=== PATIENT | male | born 1945 | race Caucasian/White ===

== ENCOUNTER 2017-12-19 16:07 | Emergency (ER) | payer MEDICARE, BC ==
--- NOTE | 2017-12-19 17:24 | XRAY Report ---
Reason: pain and swelling Procedure Date: 12/19/2017 Accession Number: [id number] / [id number] Procedure: XR - Knee 4 View LT CPT Code: FULL RESULT: EXAM: LEFT KNEE RADIOGRAPHY EXAM DATE: 12/19/2017 05:05 PM. CLINICAL HISTORY: Left knee pain. COMPARISON: None. TECHNIQUE: 4 views. FINDINGS: Bones: Normal. No fractures or bone lesions. Joints: Normal. No effusion. No subluxations. Soft Tissues: Normal. No soft tissue swelling. IMPRESSION: Normal knee radiography. [facility]
--- NOTE | 2017-12-19 17:40 | ED Physician Documentation ---
PD HPI ANIMAL BITE - Stated complaint Stated Complaint: LT LEG VS DOG - Chief complaint Chief Complaint: Ext Problem - History obtained from History obtained from: Patient - History of Present Illness Location of injury(ies): LLE (anterolateral knee) Details of the event: Dog, Well appearing (his dog was running fast toward him at dog park and the dog ran into his knee. No bite nor scratch. Pain at anterolateral knee. Patient concerned about ligament injury.) Timing - onset: Today Timing - details: Abrupt onset Improved by: Rest Worsened by: Moving (extension at the knee), Palpating Associated symptoms: Other (denies locking nor giving out since injury.). No: Weakness, Numbness Similar symptoms before: Has not had sx before Recently seen: Not recently seen Review of Systems Skin: denies: Abrasion (s), Laceration (s) Musculoskeletal: reports: Joint pain (left anterolateral knee) Neurologic: denies: Focal weakness, Numbness PD PAST MEDICAL HISTORY - Past Medical History Cardiovascular: Hypertension Musculoskeletal: None, Osteoarthritis - Past Surgical History Past Surgical History: Yes Ortho: Arthroscopic surgery - Present Medications Home Medications: Ambulatory Orders Medication Instructions Recorded Confirmed Azithromycin 250 mg PO DAILY #4 tablet 01/24/14 Benzonatate [Tessalon] 100 mg PO Q8H PRN #20 capsule 01/24/14 L. Rhamnosus GG/Inulin [Culturelle 1 each PO DAILY #14 cap.sprink 01/24/14 Capsule] Lisinopril [Zestril] 15 mg DAILY 01/24/14 01/24/14 Vitamins And Supplement 01/24/14 01/24/14 - Allergies Allergies/Adverse Reactions: Allergies Allergy/AdvReac Type Severity Reaction Status Date / Time No Known Drug Allergies Allergy Verified 12/19/17 16:38 - Social History Does the pt smoke?: No Smoking Status: Never smoker Does the pt drink ETOH?: Yes Does the pt have substance abuse?: No PD ED PE NORMAL - Vitals Vital signs reviewed: Yes - General General: Alert and oriented X 3, No acute distress, Well developed/nourished - Derm Derm: Normal color, Warm and dry - Extremities Extremities: Other (left anterolateral knee with local tenderness in muscle. No effusion. Ligament testing of knee is without pain nor laxity. passive ROM without clicking nor popping. ) - Neuro Neuro: No motor deficit, No sensory deficit Results - Vitals Vitals: Vital Signs - 24 hr 12/19/17 16:36 Temperature 36.6 C Heart Rate 53 L Respiratory 15 Rate Blood Pressure 148/80 H O2 Saturation 98 Oxygen O2 Source Room air - Rads (name of study) left knee Radiology: Prelim report reviewed, EMP read contemporaneously (no fractures) PD MEDICAL DECISION MAKING - ED course Complexity details: reviewed results, considered differential (seems like local contusion, without clinical ligamentous injury of the knee. ), d/w patient Departure - Departure Disposition: 01 Home, Self Care Clinical Impression: Contusion, knee Qualifiers: Encounter type: initial encounter Laterality: left Qualified Code(s): S80.02XA - Contusion of left knee, initial encounter Condition: Stable Record reviewed to determine appropriate education?: Yes Instructions: ED Sprain Knee Follow-Up: Chris Merrill [Primary Care Provider] - Comments: Ice and rest your knee often tonight. You can use her knee brace that you have. Tylenol or ibuprofen or naproxen as needed for pains. Your x-ray is normal without any fractures. On exam I do not feel there are any major ligament injuries of the knee. Will be sore for several days to week and he can progress activity as you feel tolerable. Discharge Date/Time: 12/19/17 18:05
[2017-12-19 18:06] VITALS: BP 138/80
== END 2017-12-19 18:05 | disposition home or self-care (01) ==
LOC: ED 16:07
DX: S80.02XA Contusion of left knee, initial encounter (principal); I10 Essential (primary) hypertension; W54.1XXA Struck by dog, initial encounter; Y92.830 Public park as the place of occurrence of the external cause
CPT/HCPCS: 99283

== ENCOUNTER 2018-03-15 05:48 | Emergency (ER) | payer MEDICARE, BC ==
--- NOTE | 2018-03-15 06:13 | ED Physician Documentation ---
PD HPI FOCAL NEURO - Stated complaint Stated Complaint: LT ARM NUMBNESS - Chief complaint Chief Complaint: Neuro - History obtained from History obtained from: Patient, Family - History of Present Illness Timing - onset: Today Timing - duration: Minutes Timing - details: Abrupt onset, Still present Time of symptom onset unknown: Time of onset unknown Severity of deficit: Moderate Weakness: No: Face, Arm, Hand, Leg, Foot, Right, Left Numbness: Arm, Left Associated symptoms: No: Headache, Nausea / vomiting, Seizure, Syncope, Fall, Head injury, Chest pain, Neck pain, Back pain, Fever Contributing factors: negative: Anticoagulated, Atrial fibrillation Baseline status: positive: A&OX3, ambulatory, indep Similar symptoms before: Diagnosis (TIA in 2006 nerve compression) Recently seen: Not recently seen - Additional information Additional information: 72-year-old previously well male has developed numbness in the left arm from the axilla to the wrist on the volar surface. He has had these symptoms previously and is able to shake it off very easily and this morning he is not been able to shake this off. He reports that he usually sleeps with a pillow underneath his left arm. He also reports that in 2006 he was evaluated for a TIA related to numbness in the left arm. He has no motor weakness and he has no family history of heart disease. He does relate that he is a runner and that recently he was not told by his dog and sprained his knee and was out of training for about 2 months. He is come back to training and despite this within the month he is still not up to where he was previously. He was not expecting this level of deconditioning. Usually ran about 4 miles he is only up to a little more than 2. Review of Systems Constitutional: denies: Fever, Chills, Myalgias, Fatigue, Weight Loss, Sweats Eyes: denies: Decreased vision Ears: denies: Ear pain Nose: denies: Rhinorrhea / runny nose, Congestion Throat: denies: Dental pain / toothache Cardiac: denies: Chest pain / pressure, Palpitations, Calf pain Respiratory: denies: Dyspnea, Cough GI: denies: Abdominal Pain, Nausea, Vomiting, Constipation, Diarrhea : denies: Dysuria, Frequency Skin: denies: Rash Musculoskeletal: denies: Neck pain, Back pain, Extremity pain Neurologic: reports: Numbness. denies: Generalized weakness, Focal weakness PD PAST MEDICAL HISTORY - Past Medical History Cardiovascular: Hypertension Musculoskeletal: None, Osteoarthritis - Past Surgical History Past Surgical History: Yes Ortho: Arthroscopic surgery - Present Medications Home Medications: Ambulatory Orders Medication Instructions Recorded Confirmed Azithromycin 250 mg PO DAILY #4 tablet 01/24/14 Benzonatate [Tessalon] 100 mg PO Q8H PRN #20 capsule 01/24/14 L. Rhamnosus GG/Inulin [Culturelle 1 each PO DAILY #14 cap.sprink 01/24/14 Capsule] Lisinopril [Zestril] 15 mg DAILY 01/24/14 01/24/14 Vitamins And Supplement 01/24/14 01/24/14 - Allergies Allergies/Adverse Reactions: Allergies Allergy/AdvReac Type Severity Reaction Status Date / Time No Known Drug Allergies Allergy Verified 12/19/17 16:38 - Social History Does the pt smoke?: No Smoking Status: Never smoker Does the pt drink ETOH?: Yes Does the pt have substance abuse?: No PD ED PE NORMAL - Vitals Vital signs reviewed: Yes (hypertensive ) - General General: Alert and oriented X 3, No acute distress, Well developed/nourished - HEENT HEENT: Atraumatic, PERRL, EOMI, Ears normal - Neck Neck: Supple, no meningeal sign, No bony TTP - Cardiac Cardiac: RRR, No murmur - Respiratory Respiratory: No respiratory distress, Clear bilaterally - Abdomen Abdomen: Soft, Non tender - Back Back: No CVA TTP - Derm Derm: Normal color, Warm and dry, No rash - Extremities Extremities: No deformity, No tenderness to palpate, Normal ROM s pain, No edema, No calf tenderness / cord - Neuro Neuro: Alert and oriented X 3, informatics application analyst 2-12 intact, No motor deficit, Normal speech, Other (subjective numbness to the volar surface of the left arm from the axilla to the hand. ) Eye Opening: Spontaneous Motor: Obeys Commands Verbal: Oriented GCS Score: 15 - Psych Psych: Normal mood, Normal affect NIHSS - Time Time: 06:00 - Level of Consciousness Level of consciousness: (0) Alert, Keenly responsive LOC Questions: (0) Answers both Q's correct LOC Commands: (0) Performs both correctly - Gaze Best Gaze: (0) Normal - Visual Visual: (0) No loss - Facial Palsy Facial Palsy: (0) Normal, symmetrical movement - Motor Arms (both separate) Motor Arm (right): (0) No drift Motor Arm (left): (0) No drift - Motor Legs (both separate) Motor Leg (right): (0) No drift Motor Leg (left): (0) No drift - Limb Ataxia Limb Ataxia: (0) Absent - Sensory Sensory: (1) Xboe-yc-zimjqmic loss - Best Language Best Language: (0) No aphasia - Dysarthria Dysarthria: (0) Normal - Extinction and Inattention (formally neg Extinction and inattention: (0) No abnormality - Total Score/Results Total Score/Result: 1 Results - Vitals Vitals: Vital Signs - 24 hr 03/15/18 03/15/18 05:52 06:30 Temperature 36.8 C 36.5 C Heart Rate 49 L 46 L Respiratory 16 12 Rate Blood Pressure 185/90 H 154/84 H O2 Saturation 100 97 Oxygen O2 Source Room air - EKG (time done) 0558 Rate: Rate (enter#) (46) Rhythm: Sinus bradycardia QRS: LVH Ischemia: Non specific changes Compare to prior EKG: Old EKG unavailable Computer interpretation: Agree with computer - Labs Labs: Laboratory Tests 03/15/18 03/15/18 03/15/18 06:20 06:20 06:20 WBC 6.4 RBC 5.79 Hgb 16.7 Hct 48.7 MCV 84.1 MCH 28.9 MCHC 34.4 RDW 13.2 Plt Count 183 MPV 6.7 L Neut # (Auto) 3.1 Lymph # (Auto) 2.6 [place] # (Auto) 0.5 Eos # (Auto) 0.1 Baso # (Auto) 0.1 Absolute Nucleated RBC 0.03 Nucleated RBC % 0.5 Sodium 138 Potassium 3.8 Chloride 106 Carbon Dioxide 24 Anion Gap 8.0 BUN 22 H Creatinine 0.7 Estimated GFR (MDRD) 111 Glucose 98 Calcium 9.0 Total Bilirubin 1.5 H AST 23 ALT 17 Alkaline Phosphatase 65 Troponin I < 0.04 Total Protein 7.2 Albumin 4.1 Globulin 3.1 Albumin/Globulin Ratio 1.3 Lipase 32 - Rads (name of study) 2 view chest Radiology: Prelim report reviewed (Impression: Normal two-view chest radiography.), EMP read indepedently, See rad report PD MEDICAL DECISION MAKING - ED course Complexity details: reviewed old records, reviewed results, re-evaluated patient, considered differential, d/w patient, d/w family ED course: 72 y/o male with left arm numbness in the distribution of the medial cutaneous branch of the arm and forearm. He has some improvement in his symptoms while in the ED but not resolution. His condition does not correlate with CVA or TIA or LA. Departure - Departure Disposition: 01 Home, Self Care Clinical Impression: Paresthesia of arm Condition: Stable Instructions: ED Paraesthesias Follow-Up: Chris Merrill [Primary Care Provider] -
[2018-03-15 06:37] LABS: BASOPHILS # (AUTO) 0.1 10^3/uL (0.0-0.1); BASOPHILS % (AUTO) 0.8 %; EOSINOPHILS # (AUTO) 0.1 10^3/uL (0.0-0.7); EOSINOPHILS % (AUTO) 1.3 %; HGB - HEMOGLOBIN 16.7 g/dL (14.0-18.0); LYMPHOCYTES # (AUTO) 2.6 10^3/uL (1.5-3.5); LYMPHOCYTES % (AUTO) 40.8 %; MEAN CORPUSCULAR HEMOGLOBIN 28.9 pg (27.0-31.0); MEAN CORPUSCULAR HGB CONC 34.4 g/dL (32.0-36.0); MEAN CORPUSCULAR VOLUME 84.1 fL (80.0-94.0); MEAN PLATELET VOLUME 6.7 fL (7.4-11.4); MONOCYTES # (AUTO) 0.5 10^3/uL (0.0-1.0); MONOCYTES % (AUTO) 8.1 %; NEUTROPHILS # (AUTO) 3.1 10^3/uL (1.5-6.6); PLT - PLATELET COUNT 183 10^3/uL (130-450); RED BLOOD COUNT 5.79 10^6/uL (4.70-6.10); RED CELL DISTRIBUTION WIDTH 13.2 % (12.0-15.0); WHITE BLOOD COUNT 6.4 x10^3/uL (4.8-10.8)
--- NOTE | 2018-03-15 06:39 | XRAY Report ---
Reason: L arm numbness Procedure Date: 03/15/2018 Accession Number: [id number] / [id number] Procedure: XR - Chest 2 View X-Ray CPT Code: 54712 FULL RESULT: EXAM: CHEST RADIOGRAPHY EXAM DATE: 03/15/2018 06:33 AM. CLINICAL HISTORY: L arm numbness. COMPARISON: None. TECHNIQUE: 2 views. FINDINGS: Lungs/Pleura: No focal opacities evident. No pleural effusion. No pneumothorax. Normal volumes. Mediastinum: Heart and mediastinal contours are unremarkable. Other: None. IMPRESSION: Normal 2-view chest radiography. [facility]
[2018-03-15 06:43] LABS: ALBUMIN 4.1 g/dL (3.2-5.5); ALBUMIN/GLOBULIN RATIO 1.3 (1.0-2.2); BILIRUBIN,TOTAL 1.5 mg/dL (0.2-1.0); CREATININE 0.7 mg/dL (0.6-1.2); TOTAL PROTEIN 7.2 g/dL (6.7-8.2)
[2018-03-15 08:15] VITALS: BP 169/90
== END 2018-03-15 08:17 | disposition home or self-care (01) ==
LOC: ED 05:48
DX: R20.2 Paresthesia of skin (principal); I10 Essential (primary) hypertension
CPT/HCPCS: 36415; 71046; 80053; 83690; 84484; 85025; 93005; 99283; 99284

== ENCOUNTER 2018-04-06 10:56 | Emergency (ER) | payer MEDICARE, BC ==
[2018-04-06 11:32] VITALS: BP 136/86
--- NOTE | 2018-04-06 11:56 | ED Physician Documentation ---
PD HPI DYSPNEA - Stated complaint Stated Complaint: CHILLS/COUGH/WEAKNESS - Chief complaint Chief Complaint: Resp - History obtained from History obtained from: Patient - History of Present Illness Timing - onset: Other (This is an otherwise healthy 9-year-old gentleman with history of pneumonia x1 about 4 years ago who presents with an upper respiratory infection. It started with a sore throat that started about 5 days ago and defervesced but then he became chilled and developed an on and off productive cough with shortness of breath. There is no chest pain.) Review of Systems Constitutional: reports: Chills, Fatigue. denies: Fever Ears: denies: Ear pain Nose: reports: Rhinorrhea / runny nose Throat: denies: Sore throat Respiratory: reports: Dyspnea, Cough GI: denies: Abdominal Pain PD PAST MEDICAL HISTORY - Past Medical History Past Medical History: Yes Cardiovascular: Hypertension Neuro: TIA Musculoskeletal: None, Osteoarthritis - Past Surgical History Past Surgical History: Yes Ortho: Arthroscopic surgery - Present Medications Home Medications: Ambulatory Orders Medication Instructions Recorded Confirmed Azithromycin 250 mg PO DAILY #4 tablet 01/24/14 Benzonatate [Tessalon] 100 mg PO Q8H PRN #20 capsule 01/24/14 L. Rhamnosus GG/Inulin [Culturelle 1 each PO DAILY #14 cap.sprink 01/24/14 Capsule] Lisinopril [Zestril] 15 mg DAILY 01/24/14 01/24/14 Vitamins And Supplement 01/24/14 01/24/14 Albuterol Sulf [Ventolin Hfa 1 - 2 puffs INH Q4HR PRN #1 inhaler 04/06/18 Inhaler] guaiFENesin/CODEINE [Robitussin AC] 5 - 10 ml PO Q6H PRN #120 ml 04/06/18 - Allergies Allergies/Adverse Reactions: Allergies Allergy/AdvReac Type Severity Reaction Status Date / Time No Known Drug Allergies Allergy Verified 04/06/18 11:03 - Social History Does the pt smoke?: No Smoking Status: Never smoker Does the pt drink ETOH?: Yes Does the pt have substance abuse?: No - Immunizations Immunizations are current?: Yes PD ED PE NORMAL - Vitals Vital signs reviewed: Yes - General General: Alert and oriented X 3, No acute distress - HEENT HEENT: Pharynx benign - Cardiac Cardiac: RRR (With frequent extrasystoles, PACs on monitor), No murmur - Respiratory Respiratory: No respiratory distress, Other (Mild wheezes throughout without focal findings or respiratory distress.) - Abdomen Abdomen: Non tender - Extremities Extremities: No edema, No calf tenderness / cord - Neuro Neuro: Alert and oriented X 3, Normal speech - Psych Psych: Normal mood, Normal affect Results - Vitals Vitals: Vital Signs - 24 hr 04/06/18 04/06/18 11:00 11:28 Temperature 36.8 C Heart Rate 50 L 50 L Respiratory 16 16 Rate Blood Pressure 148/73 H 136/86 H O2 Saturation 99 97 Oxygen O2 Source Room air - Labs Labs: Laboratory Tests 04/06/18 11:04 Influenza A (Rapid) Negative Influenza B (Rapid) Negative - Rads (name of study) 2v chest Radiology: EMP read contemporaneously (NAD) Departure - Departure Disposition: Home, Self Care Clinical Impression: Viral bronchitis Condition: Good Record reviewed to determine appropriate education?: Yes Instructions: ED Upper Resp Infec No Abx Tx Prescriptions: Albuterol Sulf [Ventolin Hfa Inhaler] 1 - 2 puffs INH Q4HR PRN #1 inhaler PRN Reason: Shortness Of Air/Wheezing guaiFENesin/CODEINE [Robitussin AC] 5 - 10 ml PO Q6H PRN #120 ml PRN Reason: Cough Comments: Call your doctor to arrange a follow-up appointment, make the next available appointment. In the interim, return anytime if worse or if new symptoms dev elop. Your blood pressure was elevated today on check into the emergency department. This does not mean that you have hypertension, it is a common phenomenon to come to the emergency department and have elevated blood pressure. I recommend that you see your primary care physician within the week to have it rechecked when you are feeling better.
--- NOTE | 2018-04-06 12:30 | XRAY Report ---
Reason: cough Procedure Date: 04/06/2018 Accession Number: [id number] / [id number] Procedure: XR - Chest 2 View X-Ray CPT Code: 80836 FULL RESULT: EXAM: CHEST RADIOGRAPHY EXAM DATE: 04/06/2018 12:04 PM. CLINICAL HISTORY: Cough. COMPARISON: 03/15/2018. TECHNIQUE: 2 views. FINDINGS: Lungs/Pleura: No focal opacities evident. No pleural effusion. No pneumothorax. Normal volumes. Mediastinum: Heart and mediastinal contours are unremarkable. Other: None. IMPRESSION: Normal 2-view chest radiography. [facility]
== END 2018-04-06 12:43 | disposition home or self-care (01) ==
LOC: ED 10:56
DX: J20.8 Acute bronchitis due to other specified organisms (principal); B97.89 Other viral agents as the cause of diseases classified elsewhere; I10 Essential (primary) hypertension; Z86.73 Personal history of transient ischemic attack (TIA), and cerebral infarction without residual deficits
CPT/HCPCS: 71046; 87275; 87276; 99283

== ENCOUNTER 2018-06-15 09:54 | Emergency (ER) | payer MEDICARE, BC ==
--- NOTE | 2018-06-15 11:51 | ED Physician Documentation ---
PD HPI LOWER EXT INJURY - Stated complaint Stated Complaint: PAIN ON INNER THIGH - Chief complaint Chief Complaint: Trauma Ext - History obtained from History obtained from: Patient - History of Present Illness PD HPI LOW EXT INJURY LOCATION: Right, Thigh Type of injury: Other (he had been traveling, to [place] last month, and then just back from [place] couple days ago. He is avid runner and was running regularly. Does not recall injury nor abrupt pain. Started with pain right medial thigh yesterday and seemed increased today. No lower leg pain nor swelling.). No: Fall, Twist Timing - onset: Yesterday Timing - details: Gradual onset, Still present, Waxing and waning Improved by: Rest Worsened by: Moving (adduction of the right leg and pivoting on foot while standing.). No: Palpating Associated symptoms: No: Weakness, Numbness, Swelling Similar symptoms before: Has not had sx before Recently seen: Not recently seen Review of Systems Constitutional: denies: Fever, Chills Nose: denies: Rhinorrhea / runny nose, Congestion Throat: denies: Sore throat Cardiac: denies: Chest pain / pressure Respiratory: denies: Dyspnea, Cough GI: denies: Nausea, Vomiting Skin: denies: Rash, Lesions Musculoskeletal: denies: Back pain PD PAST MEDICAL HISTORY - Past Medical History Cardiovascular: Hypertension Neuro: TIA Musculoskeletal: None, Osteoarthritis - Past Surgical History Past Surgical History: Yes Ortho: Arthroscopic surgery - Present Medications Home Medications: Ambulatory Orders Medication Instructions Recorded Confirmed Azithromycin 250 mg PO DAILY #4 tablet 01/24/14 Benzonatate [Tessalon] 100 mg PO Q8H PRN #20 capsule 01/24/14 L. Rhamnosus GG/Inulin [Culturelle 1 each PO DAILY #14 cap.sprink 01/24/14 Capsule] Lisinopril [Zestril] 15 mg DAILY 01/24/14 01/24/14 Vitamins And Supplement 01/24/14 01/24/14 Albuterol Sulf [Ventolin Hfa 1 - 2 puffs INH Q4HR PRN #1 inhaler 04/06/18 Inhaler] guaiFENesin/CODEINE [Robitussin AC] 5 - 10 ml PO Q6H PRN #120 ml 04/06/18 - Allergies Allergies/Adverse Reactions: Allergies Allergy/AdvReac Type Severity Reaction Status Date / Time No Known Drug Allergies Allergy Verified 06/15/18 10:03 - Social History Does the pt smoke?: No Smoking Status: Never smoker Does the pt drink ETOH?: Yes Does the pt have substance abuse?: No - Family History Family history: denies: Venous thromboembolism - Immunizations Immunizations are current?: Yes PD ED PE NORMAL - Vitals Vital signs reviewed: Yes - General General: Alert and oriented X 3, No acute distress, Well developed/nourished - Cardiac Cardiac: RRR, No murmur - Respiratory Respiratory: Clear bilaterally - Back Back: No spinal TTP - Derm Derm: Normal color, Warm and dry, No rash - Extremities Extremities: Other (right medial thigh with some tenderness but no rash nor swelling. Pain with adduction against resistance. Knee is not tender. ) - Neuro Neuro: Alert and oriented X 3, No motor deficit, No sensory deficit Results - Vitals Vitals: Vital Signs - 24 hr 06/15/18 06/15/18 06/15/18 10:01 10:03 14:05 Temperature 36.7 C 36.4 C L Heart Rate 84 60 Respiratory 18 20 Rate Blood Pressure 168/83 H 149/83 H O2 Saturation 100 97 Oxygen O2 Source Room air - Rads (name of study) duplex right leg Radiology: Prelim report reviewed (no DVT), EMP read contemporaneously, See rad report PD MEDICAL DECISION MAKING - ED course Complexity details: considered differential (No edema in leg, but with some medial thigh pain, with recent longer travel, would be concerned for DVT. Will get Duplex. Otherwise consider adductor muscle pain from recent running. No rash nor redness. Does not seem radicular and no back pain. ), d/w patient Departure - Departure Disposition: 01 Home, Self Care Clinical Impression: Muscle strain of thigh Qualifiers: Encounter type: initial encounter Laterality: right Qualified Code(s): S76.911A - Strain of unspecified muscles, fascia and tendons at thigh level, right thigh, initial encounter Clinical Impression: (Ruled Out): DVT (deep venous thrombosis) Condition: Stable Record reviewed to determine appropriate education?: Yes Instructions: ED Strain Muscle Ext Follow-Up: Chris Merrill [Primary Care Provider] - Comments: Your ultrasound was negative for DVT. Presume this is a muscle strain of 1 of the abductors of the thigh. No running or unnecessary activity for a few days until better. Use of naproxen or ibuprofen to 3 times a day. Add Tylenol if needed. Recheck if not better over the next several days or so. Discharge Date/Time: 06/15/18 14:06
--- NOTE | 2018-06-15 13:39 | Ultrasound Report ---
Reason: right thigh pain, recent plane flight Procedure Date: 06/15/2018 Accession Number: [id number] / [id number] Procedure: US - Duplex Ext Veins Right CPT Code: FULL RESULT: EXAM: RIGHT LOWER EXTREMITY VENOUS ULTRASOUND EXAM DATE: 06/15/2018 01:04 PM. CLINICAL HISTORY: Right thigh pain, recent plane flight. COMPARISON: CHEST 2 VIEW 04/06/2018 11:59 AM. TECHNIQUE: Real-time sonographic vascular imaging was performed by the systems software engineer through the lower extremity utilizing both color-flow and Doppler spectral analysis. Multiple development representative static images were saved for review. FINDINGS: Common Femoral Vein (CFV): Normal. CFV-GSV Junction: Normal. Profunda Femoral Vein (PFV): Normal. Femoral Vein (FV) Prox: Normal. Femoral Vein (FV) Mid: Normal. Femoral Vein (FV) Dist: Normal. Popliteal Vein: Normal. Posterior Tibial Veins: Normal. Peroneal Veins: Normal. Other: None. IMPRESSION: No evidence for deep venous thrombosis. [facility]
[2018-06-15 14:06] VITALS: BP 149/83
== END 2018-06-15 14:06 | disposition home or self-care (01) ==
LOC: ED 09:54
DX: S76.911A Strain of unspecified muscles, fascia and tendons at thigh level, right thigh, initial encounter (principal); X58.XXXA Exposure to other specified factors, initial encounter; I10 Essential (primary) hypertension; Z86.73 Personal history of transient ischemic attack (TIA), and cerebral infarction without residual deficits
CPT/HCPCS: 99283